=== PATIENT | female | born 1945 | race Caucasian/White ===

== ENCOUNTER 2016-07-04 07:20 | Emergency (ER) | payer MEDICARE, BC ==
[2016-07-04 07:32] VITALS: BP 144/78; PULSE 64; RESP 18; TEMP 97.1; O2SAT 98
== END 2016-07-04 08:31 | disposition home or self-care (01) | DRG 921 ==
LOC: ED 07:20
DX: T85.698A Other mechanical complication of other specified internal prosthetic devices, implants and grafts, initial encounter (principal)
CPT/HCPCS: 99282

== ENCOUNTER 2016-08-05 07:20 | Day surgery (SDC) | payer MEDICARE, BC ==
[2016-08-05] MEDS ORDERED: BUPIVACAINE/EPI 0.25% 50 ML SOL ONE ×2 (07:43→07:45)
[2016-08-05] MEDS ORDERED: HEPARIN SODIUM 100 U/ML SOL IV ONE (07:44)
[2016-08-05] MEDS ORDERED: SODIUM CHLORIDE 20 ML 40 ML ONE (07:44)
[2016-08-05] MEDS ORDERED: LIDOCAINE HCL 1% MPF SOL ONE ×2 (07:44→08:16)
[2016-08-05] MEDS ORDERED: PROPOFOL 500 MG/50 ML EMU IV ONE (08:16)
[2016-08-05] MEDS ORDERED: MIDAZOLAM 2 MG/2 ML SOL ONE (08:17)
[2016-08-05] MEDS ORDERED: FENTANYL 100MCG/2ML SOL ONE (08:17)
[2016-08-05] MEDS ORDERED: ONDANSETRON HCL 4 MG/2 ML SOL ONE (08:19)
[2016-08-05] MEDS ORDERED: CEFAZOLIN SODIUM 1 GM PDS ONE (08:19)
[2016-08-05] MEDS ORDERED: SODIUM CHLORIDE 0.9% FLUSH 10 ML SOL IV ONE (08:55)
[2016-08-05] MEDS ORDERED: PROPOFOL 10 MG/ML EMU IV ONE (09:07)
[2016-08-05 10:10] VITALS: PULSE 57; RESP 20; TEMP 97
[2016-08-05 10:12] VITALS: BP 127/53; O2SAT 99
== END 2016-08-05 10:35 | disposition home or self-care (01) | DRG 599 ==
LOC: SURG 07:20
PROVIDERS: ATTEND Surgery
DX: C50.911 Malignant neoplasm of unspecified site of right female breast (principal)
CPT/HCPCS: 71010; 76000; J0690; J1644; J2250; J2405; J3010; J2001; J2704